=== PATIENT | female | born 1980 | race African-American/Black ===

== ENCOUNTER 2017-10-05 23:52 | Emergency (ER) | payer MEDICAID ==
[~2017-10-05] VITALS: Ht 165.1 cm; Wt 87.7 kg
[2017-10-06] MEDS ORDERED: IBUPROFEN 600MG TABLET PO ONE (01:30)
[2017-10-06 01:35] VITALS: BP 111/65
== END 2017-10-06 03:43 | disposition home or self-care (01) ==
LOC: ER 23:52
DX: S39.012A Strain of muscle, fascia and tendon of lower back, initial encounter (principal); W18.39XA Other fall on same level, initial encounter; Y93.89 Activity, other specified; Y92.39 Other specified sports and athletic area as the place of occurrence of the external cause; Y99.8 Other external cause status
CPT/HCPCS: 99283

== ENCOUNTER 2018-03-19 23:45 | Emergency (ER) | payer MEDICAID ==
[~2018-03-19] VITALS: Ht 165.1 cm; Wt 90.2 kg
[2018-03-20 00:52] LABS: CLARITY URINE CLEAR (CLEAR); COLOR URINE YELLOW (YELLOW); KETONES URINE NEGATIVE (NEGATIVE); LEUKOCYTE ESTERASE URINE 1+ (NEGATIVE); NITRITE URINE NEGATIVE (NEGATIVE); OCCULT BLOOD URINE NEGATIVE (NEGATIVE); PH URINE 5.5 (4.5-8.0); PROTEIN URINE NEGATIVE (NEGATIVE); SPECIFIC GRAVITY URINE 1.036 (1.005-1.030)
[2018-03-20 02:14] VITALS: BP 113/65
[2018-03-20] MEDS ORDERED: AZITHROMYCIN 500 MG TABLET PO ONE (03:30)
[2018-03-20] MEDS ORDERED: CEFTRIAXONE SODIUM 250 MG/VIAL IM ONE (03:30)
[2018-03-22 04:12] LABS: CHLAMYDIA TRACHOMATIS NAA Negative (Negative); NEISSERIA GONORRHOEAE NAA Negative (Negative)
== END 2018-03-20 04:00 | disposition home or self-care (01) ==
LOC: ER 23:45
DX: N76.0 Acute vaginitis (principal); N39.0 Urinary tract infection, site not specified
CPT/HCPCS: 81003; 81025; 87210; 87491; 87591; 96372; 99283; J0696

== ENCOUNTER 2023-06-21 11:39 | Emergency (ER) | payer MEDICAID, OTHER ==
[~2023-06-21] VITALS: Ht 165.1 cm; Wt 84.4 kg
[2023-06-21 12:19] VITALS: BP 119/66; PULSE 77; RESP 16; TEMP 98.9; O2SAT 98
== END 2023-06-21 14:03 | disposition home or self-care (01) ==
LOC: ER 11:39
DX: M54.50 Low back pain, unspecified (principal)
CPT/HCPCS: 99281